=== PATIENT | male | born 1980 | race Two or more races ===

== ENCOUNTER 2020-02-16 17:33 | Emergency (ER) | payer BC, OTHER ==
[~2020-02-16] VITALS: Ht 160 cm; Wt 68.0 kg
[2020-02-16 17:37] VITALS: BP 126/90
== END 2020-02-16 22:18 | disposition home or self-care (01) ==
LOC: ER 17:35
DX: L03.116 Cellulitis of left lower limb (principal); F12.10 Cannabis abuse, uncomplicated; W21.220A Struck by ice hockey puck, initial encounter; Y93.89 Activity, other specified; Y92.89 Other specified places as the place of occurrence of the external cause; Y99.8 Other external cause status
CPT/HCPCS: 73590

== ENCOUNTER 2020-02-20 12:40 | Emergency (ER) | payer BC ==
[~2020-02-20] VITALS: Ht 160 cm; Wt 68.0 kg
[2020-02-20 12:45] VITALS: BP 129/92
[2020-02-20] MEDS ORDERED: LIDOCAINE 1% HCL (LOCAL ANESTH.) INJ 20ML MDV IJ ONE (13:45)
[2020-02-20] MEDS ORDERED: cefTRIAXone SOD 1,000 MG VL IM ONE ×2 (14:00)
== END 2020-02-20 14:20 | disposition home or self-care (01) ==
LOC: ER 12:40
DX: L02.416 Cutaneous abscess of left lower limb (principal)
CPT/HCPCS: 10060; 96372; 99283; J0696; J2001

== ENCOUNTER 2020-02-22 12:34 | Emergency (ER) | payer BC ==
[~2020-02-22] VITALS: Ht 160 cm; Wt 68.0 kg
[2020-02-22 12:37] VITALS: BP 141/69
== END 2020-02-22 14:14 | disposition home or self-care (01) ==
LOC: ER 12:34
DX: Z48.00 Encounter for change or removal of nonsurgical wound dressing (principal)

== ENCOUNTER 2020-02-25 13:39 | Emergency (ER) | payer BC ==
[~2020-02-25] VITALS: Ht 160 cm; Wt 68.0 kg
[2020-02-25 14:23] VITALS: BP 137/92
== END 2020-02-25 15:02 | disposition home or self-care (01) ==
LOC: ER 13:39
DX: Z48.00 Encounter for change or removal of nonsurgical wound dressing (principal); L02.416 Cutaneous abscess of left lower limb

== ENCOUNTER 2020-02-28 14:23 | Emergency (ER) | payer BC ==
[~2020-02-28] VITALS: Ht 160 cm; Wt 68.0 kg
[2020-02-28 15:33] VITALS: BP 132/80
== END 2020-02-28 15:52 | disposition home or self-care (01) ==
LOC: ER 14:23
DX: L03.116 Cellulitis of left lower limb (principal)